=== PATIENT | female | born 1955 | race Caucasian/White ===

== ENCOUNTER 2017-10-08 13:11 | Day surgery (SDC) | payer OTHER ==
[~2017-10-08] VITALS: Ht 167.6 cm; Wt 63.1 kg
[~2017-10-08 13:11] MED LIST: ASPIRIN E.C. 8181 MG PO; CALCIUM WITH D31 CTB PO; MASON NATURAL1200 MG PO; MASON NATURAL600 MG PO; MULTI VITAMINS1 TAB PO; TYLENOL 325MG325 MG PO
[2017-10-08 13:44] VITALS: BP 154/80; PULSE 83; TEMP 98.1
[2017-10-08 15:25] VITALS: BP 147/71; PULSE 71; TEMP 98.1
[2017-10-08 15:39] VITALS: BP 164/87; PULSE 75
[2017-10-08 16:00] VITALS: BP 160/88; PULSE 80
[2017-10-08 16:15] VITALS: BP 153/86; PULSE 70
== END 2017-10-08 16:54 | disposition home or self-care (01) ==
LOC: SDCO 13:11
DX: N20.1 Calculus of ureter (principal); N32.9 Bladder disorder, unspecified; E78.5 Hyperlipidemia, unspecified; E78.00 Pure hypercholesterolemia, unspecified; M85.80 Other specified disorders of bone density and structure, unspecified site; Z79.82 Long term (current) use of aspirin; Z85.3 Personal history of malignant neoplasm of breast; Z80.51 Family history of malignant neoplasm of kidney; Z80.3 Family history of malignant neoplasm of breast; Z88.1 Allergy status to other antibiotic agents
CPT/HCPCS: C1769; C2617; J0690; J2405; J2704; J3010; J7120

== ENCOUNTER → 2023-09-15 | Outpatient (CLI) | payer MEDICARE, OTHER | LOC: MC.RAD 12:57 | DX: R59.0 Localized enlarged lymph nodes (principal) ==